=== PATIENT | male | born 1980 | race Two or more races ===

== ENCOUNTER 2018-09-18 17:43 | Emergency (ER) | payer SELFPAY ==
--- NOTE | 2018-09-18 19:45 | EDM.PDOC ---
ED HPI GENERAL MEDICAL PROBLEM - General Chief Complaint: ENT Problem Stated Complaint: SORE THROAT Time Seen by Provider: 09/18/18 18:49 Source of Information: Reports: Patient, Family ( ) History Limitations: Reports: No Limitations - History of Present Illness INITIAL COMMENTS - FREE TEXT/NARRATIVE: Chief complaint: sore throat, cough, ear pain This is a 38 year old male presents to ER with his , reports has been sick for one week, not sleeping well. Has swollen tonsils, sore throat, ears are painful for the past few days. coughed up bloody phlegm one day then none since. No other family members are ill denies any chest pain, shortness of breath, fever, shaking chills, nausea, vomiting, diarrhea or rash. Onset: Gradual Onset Date: 09/11/18 Duration: Day(s): (one week), Week(s): (one) Location: Reports: Generalized, Other (ear pain) Quality: Reports: Burning (throat), Sharp (ears) Severity: Moderate Improves with: Reports: None Worsens with: Reports: None Associated Symptoms: Reports: Cough Throat Pain Score (Numeric/FACES): 8 - Related Data Allergies Allergy/AdvReac Type Severity Reaction Status Date / Time No Known Allergies Allergy Verified 09/18/18 19:02 Home Meds: Home Meds Ibuprofen 800 mg PO Q6H PRN 09/18/18 [History] Past Medical History - Past Health History Medical/Surgical History: Denies Medical/Surgical History - Infectious Disease History Infectious Disease History: Reports: Chicken Pox Social & Family History - Tobacco Use Smoking Status *Q: Current Every Day Smoker Years of Tobacco use: 20 Packs/Tins Daily: 0.4 Used Tobacco, but Quit: No Second Hand Smoke Exposure: Yes - Caffeine Use Caffeine Use: Reports: Energy Drinks - Recreational Drug Use Recreational Drug Use: No ED ROS ENT - Review of Systems Review Of Systems: See Below Constitutional: Reports: Fever, Fatigue (not sleeping at night due to pain and cough) HEENT: Reports: Ear Pain, Sinus Problem, Throat Pain Respiratory: Reports: Cough Cardiovascular: Reports: No Symptoms Endocrine: Reports: No Symptoms GI/Abdominal: Reports: No Symptoms Musculoskeletal: Reports: No Symptoms Skin: Reports: No Symptoms Neurological: Reports: No Symptoms Psychiatric: Reports: No Symptoms Hematologic/Lymphatic: Reports: No Symptoms Immunologic: Reports: No Symptoms ED EXAM, ENT - Physical Exam Exam: See Below Exam Limited By: No Limitations General Appearance: Alert, WD/WN, No Apparent Distress, Other (neat and well groomed) Eye Exam: Bilateral Eye: Normal Inspection Ears: Normal External Exam, TM Bulging (bilateral), TM Erythema (bilateral) Nose: Normal Inspection, Normal Mucousa Mouth/Throat: Normal Gums, Normal Lips, Normal Teeth, Throat Pain, Tonsillar Erythema, Tonsillar Swelling Head: Atraumatic, Normocephalic Neck: Normal Inspection, Supple, Non-Tender, Full Range of Motion Respiratory/Chest: No Respiratory Distress, Lungs Clear, Normal Breath Sounds, No Accessory Muscle Use, Chest Non-Tender Cardiovascular: Regular Rate, Rhythm, No Murmur GI/Abdominal: Normal Bowel Sounds, Soft, Non-Tender Back: Normal Inspection, Full Range of Motion Extremities: Normal Inspection, Normal Range of Motion, Non-Tender Neurological: No Motor/Sensory Deficits Psychiatric: Normal Affect, Normal Mood Skin: Warm, Dry, Intact, Normal Color, No Rash Lymphatic: Adenopathy Course - Vital Signs Last Recorded V/S: Last Vital Signs Temp 36.1 C 09/18/18 19:19 Pulse 100 09/18/18 19:19 Resp 18 09/18/18 19:19 BP 123/83 09/18/18 19:19 Pulse Ox 97 09/18/18 19:19 - Orders/Labs/Meds Orders: Active Orders 24 hr Category Date Time Status CULTURE STREP A CONFIRMATION [RM] Stat Lab 09/18/18 19:12 Results STREP SCRN A RAPID W CULT CONF [RM] Stat Lab 09/18/18 19:12 Results - Re-Assessments/Exams Free Text/Narrative Re-Assessment/Exam: 09/18/18 19:59 rapid strep negative, throat culture pending ears; TM bright red and bulging, tender to exam lungs; clear, cough present, non productive Departure - Departure Time of Disposition: 19:39 Disposition: Home, Self-Care 01 Condition: Good Clinical Impression: Tonsillitis, Bronchitis Otitis media Qualifiers: Otitis media type: unspecified Chronicity: acute Qualified Code(s): H66.90 - Otitis media, unspecified, unspecified ear - Discharge Information *PRESCRIPTION DRUG MONITORING PROGRAM REVIEWED*: Not Applicable *COPY OF PRESCRIPTION DRUG MONITORING REPORT IN PATIENT DANIELLE: Not Applicable Instructions: Tonsillitis, [id number], Otitis Media, Adult, [id number] Referrals: PCP,None [Primary Care Provider] - Forms: ED Department Discharge, ED Return to Work/School Form Care Plan Goals: Ear Infection bilateral -Zithromax 250 mg, take 2 tablets today then one tablet daily til gone -rest, advised no work for til Thursday or until well. -work slip given Bronchitis -Robitussin AC 10 ml every 4 hours as needed for painful cough -rest, push fluids,take medication as directed Tonsillitis -rapid strep negative, throat culture pending -continue with over the counter Tylenol or Motrin for pain or fever Advise to return to ER if symptoms worsen or not improved or has any concerns. - Problem List & Annotations (1) Otitis media SNOMED Code(s): 21166941 Code(s): H66.90 - OTITIS MEDIA, UNSPECIFIED, UNSPECIFIED EAR Status: Acute Priority: High Current Visit: Yes Qualifiers: Otitis media type: unspecified Chronicity: acute Qualified Code(s): H66.90 - Otitis media, unspecified, unspecified ear (2) Bronchitis SNOMED Code(s): 43783576 Code(s): J40 - BRONCHITIS, NOT SPECIFIED ACUTE OR CHRONIC Status: Acute Priority: High Current Visit: Yes (3) Tonsillitis SNOMED Code(s): 04559115 Code(s): J03.90 - ACUTE TONSILLITIS, UNSPECIFIED Status: Acute Priority: High Current Visit: Yes - Problem List Review Problem List Initiated/Reviewed/Updated: Yes - My Orders Last 24 Hours: My Active Orders 09/18/18 19:12 CULTURE STREP A CONFIRMATION [RM] Stat STREP SCRN A RAPID W CULT CONF [] Stat - Assessment/Plan Last 24 Hours: My Active Orders 09/18/18 19:12 CULTURE STREP A CONFIRMATION [RM] Stat STREP SCRN A RAPID W CULT CONF [] Stat Plan: Ear Infection bilateral -Zithromax 250 mg, take 2 tablets today then one tablet daily til gone -rest, advised no work for til Thursday or until well. -work slip given Bronchitis -Robitussin AC 10 ml every 4 hours as needed for painful cough -rest, push fluids,take medication as directed Tonsillitis -rapid strep negative, throat culture pending -continue with over the counter Tylenol or Motrin for pain or fever Advise to return to ER if symptoms worsen or not improved or has any concerns.
== END 2018-09-18 19:55 | disposition home or self-care (01) ==
LOC: JP.ED 17:43
DX: J40 Bronchitis, not specified as acute or chronic (principal); J03.90 Acute tonsillitis, unspecified; H66.93 Otitis media, unspecified, bilateral; F17.210 Nicotine dependence, cigarettes, uncomplicated
CPT/HCPCS: 87081; 87430; 99283

== ENCOUNTER 2019-07-02 15:39 | Emergency (ER) | payer BC, OTHER ==
--- NOTE | 2019-07-02 17:34 | EDM.PDOC ---
ED HPI GENERAL MEDICAL PROBLEM - General Chief Complaint: Fever Stated Complaint: FEVER,BODY ACHES,COUGH Time Seen by Provider: 07/02/19 17:06 Source of Information: Reports: Patient History Limitations: Reports: No Limitations - History of Present Illness INITIAL COMMENTS - FREE TEXT/NARRATIVE: Patient has been progressively sick over the last few days. Other family members have had similar symptoms. The most annoying is sore throat and some cough. No stomach upset. Onset: Gradual Duration: Day(s): (2) Quality: Reports: Ache Severity: Mild Improves with: Reports: None Worsens with: Reports: None - Related Data Allergies Allergy/AdvReac Type Severity Reaction Status Date / Time No Known Allergies Allergy Verified 07/02/19 16:49 Home Meds: Home Meds NK [No Known Home Meds] 07/02/19 [History] Past Medical History - Past Health History Medical/Surgical History: Denies Medical/Surgical History - Infectious Disease History Infectious Disease History: Reports: Chicken Pox Social & Family History - Tobacco Use Smoking Status *Q: Never Smoker - Caffeine Use Caffeine Use: Reports: Energy Drinks ED ROS ENT - Review of Systems Review Of Systems: See Below Constitutional: Reports: Fever, Malaise. Denies: Chills, Night Sweats HEENT: Reports: Rhinitis, Throat Pain. Denies: Throat Swelling Respiratory: Reports: Cough. Denies: Shortness of Breath Cardiovascular: Reports: No Symptoms GI/Abdominal: Reports: No Symptoms ED EXAM, ENT - Physical Exam Exam: See Below Exam Limited By: No Limitations General Appearance: Alert, Mild Distress Nose: Clear Rhinorrhea Mouth/Throat: Normal Oropharynx Neck: No: Lymphadenopathy (R), Lymphadenopathy (L) Respiratory/Chest: No Respiratory Distress Cardiovascular: Regular Rate, Rhythm Course - Vital Signs Last Recorded V/S: Last Vital Signs Temp 36.7 C 07/02/19 16:52 Pulse 82 07/02/19 16:52 Resp 16 07/02/19 16:52 BP 111/65 07/02/19 16:52 Pulse Ox 95 07/02/19 16:52 - Re-Assessments/Exams Free Text/Narrative Re-Assessment/Exam: 07/02/19 21:53 History and exam are consistent with a respiratory viral syndrome. I recommend adequate fluids along with analgesics of choice. He likely will be sick over the next 5-7 days. Recheck with primary care if not better in one week or so. 07/02/19 21:53 Departure - Departure Time of Disposition: 17:35 Disposition: Home, Self-Care 01 Condition: Good Clinical Impression: Viral syndrome - Discharge Information *PRESCRIPTION DRUG MONITORING PROGRAM REVIEWED*: Not Applicable *COPY OF PRESCRIPTION DRUG MONITORING REPORT IN PATIENT DANIELLE: Not Applicable Instructions: Viral Respiratory Infection, [id number] Referrals: PCP,None [Primary Care Provider] - Forms: ED Department Discharge Additional Instructions: Ibuprofen 800 mg 3 times a day or Tylenol 1000 mg 4 times a day regularly over the next 3 days. Ensure you're drinking enough fluids. He will likely be sick for another 5 days or so. Recheck with primary care if not better in one week. Return to ER if feeling worse in anyway. Sepsis Event Note - Evaluation Sepsis Screening Result: No Definite Risk - Focused Exam Vital Signs: Vital Signs Temp Pulse Resp BP Pulse Ox 07/02/19 16:52 36.7 C 82 16 111/65 95 07/02/19 16:19 36.7 C 82 16 111/65 95 Date Exam was Performed: 07/02/19 Time Exam was Performed: 21:51
== END 2019-07-02 17:45 | disposition home or self-care (01) ==
LOC: JP.ED 15:39
DX: B34.9 Viral infection, unspecified (principal)
CPT/HCPCS: 99283